=== PATIENT | male | born 1985 | race African-American/Black ===

== ENCOUNTER 2018-11-13 11:32 | Inpatient (IN) | payer BC, MEDICAID ==
--- NOTE | 2018-11-13 12:44 | ER Document Report ---
ED Medical Screen (RME) - General Chief Complaint: Leg Swelling Stated Complaint: LEG SWELLING/PAIN Time Seen by Provider: 11/13/18 12:36 Mode of Arrival: Wheelchair Information source: Patient Notes: This is a 32-year-old man with a history of hypertension, morbid obesity, venous stasis who presents to the emergency room with increased warmth, drainage, skin breakdown of the left lower extremity. Patient has a wound care doctor in [facility] and is scheduled to return back to [place] November 25. He is also scheduled for bariatric surgery in [facility]. He denies fever. He is allerg ic to sulfa. - Related Data Allergies/Adverse Reactions: Sulfa (Sulfonamide Antibiotics) Allergy (Verified 11/13/18 11:47) Past Medical History - Social History Frequency of alcohol use: None Drug Abuse: None - Past Medical History Cardiac Medical History: Reports: Hx Hypertension Renal/ Medical History: Denies: Hx Peritoneal Dialysis Musculoskeltal Medical History: Reports Hx Arthritis - RA Past Surgical History: Reports: Hx Tonsillectomy Physical Exam - Vital signs Vitals: Temp Pulse Resp BP Pulse Ox 97.8 F 110 H 19 154/113 H 97 11/13/18 12:09 11/13/18 12:09 11/13/18 12:09 11/13/18 12:09 11/13/18 12:09 Course - Vital Signs Vital signs: Temp Pulse Resp BP Pulse Ox 97.8 F 110 H 19 154/113 H 97 11/13/18 12:09 11/13/18 12:09 11/13/18 12:09 11/13/18 12:09 11/13/18 12:09 Doctor's Discharge - Discharge Referrals: LOCALMD,NO [Primary Care Provider] - Follow up as needed
[2018-11-13 14:32] LABS: ABSOLUTE EOSINOPHILS # (AUTO) 0.1 10^3/uL (0.0-0.6); ABSOLUTE LYMPHOCYTES (AUTO) 0.7 10^3/uL (0.5-4.7); ABSOLUTE MONOCYTES (AUTO) 0.6 10^3/uL (0.1-1.4); ABSOLUTE NEUT (AUTO) 10.6 10^3/uL (1.7-8.2); BASOPHILS % (AUTO) 0.2 % (0-2); EOSINOPHILS % (AUTO) 0.5 % (0-6); HEMATOCRIT 33.8 % (37.9-51.0); MEAN CORPUSCULAR HGB CONC 32.6 g/dL (32.0-36.0); MEAN CORPUSCULAR VOLUME 86 fl (80-97); MONOCYTES % (AUTO) 5.2 % (3-13); PLATELET COUNT 225 10^3/uL (150-450); RED BLOOD COUNT 3.93 10^6/uL (4.35-5.55); RED CELL DISTRIBUTION WIDTH 14.5 % (11.5-14.0); SEGMENTED NEUTROPHILS % (AUTO) 88.1 % (42-78); TOTAL CELLS COUNTED % (AUTO) 100 %; WHITE BLOOD COUNT 12.1 10^3/uL (4.0-10.5)
[2018-11-13] MEDS ORDERED: PIPERACILLIN/TAZOBACTAM 4.5 GM VIAL IV ONE (14:39)
[2018-11-13] MEDS ORDERED: VANCOMYCIN HCL INJ 1000 MG VIAL IV ONE (14:39)
[2018-11-13 14:51] LABS: ALANINE AMINOTRANSFERASE 23 U/L (21-72); ALBUMIN 3.9 g/dL (3.5-5.0); ALKALINE PHOSPHATASE 94 U/L (38-126); ANION GAP 8 (5-19); ASPARTATE AMINO TRANSFERASE 21 U/L (17-59); BILIRUBIN,DIRECT 0.3 mg/dL (0.0-0.4); BILIRUBIN,TOTAL 0.6 mg/dL (0.2-1.3); BLOOD UREA NITROGEN 8 mg/dL (7-20); CARBON DIOXIDE 30 mmol/L (22-30); CHLORIDE 102 mmol/L (98-107); GLUCOSE 102 mg/dL (75-110); POTASSIUM 3.9 mmol/L (3.6-5.0); SODIUM 139.6 mmol/L (137-145); TOTAL PROTEIN 8.3 g/dL (6.3-8.2)
--- NOTE | 2018-11-13 15:03 | ER Document Report ---
ED General - General Chief Complaint: Leg Swelling Stated Complaint: LEG SWELLING/PAIN Time Seen by Provider: 11/13/18 12:36 Mode of Arrival: Wheelchair - HPI Notes: 32-year-old male with a history of hypertension presents to the ED with complaints of left ankle swelling, erythema, pain with history of venous stasis with a BMI well over 90 and decubitus ulcers bilaterally which has become progressively worse today. Patient has been seen by wound clinic is having decubitus ulcers managed however patient is just visiting [place] and is a resident of [place]. Chills, denies fever. Reports pain is 9 out of 10, sharp and constant. Has not tried any [id number] medications. Patient did not take his blood pressure medications today due to coming right here for concerns of pain in his legs. Unable to bear full weight on bilateral legs, patient does ambulate with wheelchair. Denies any numbness and tingling in bilateral lower legs. Denies , chest pain,palpitations, shortness of breath, dyspnea, nausea, vomiting, diarrhea, abdominal pain, hematuria,blurred vision, double vision, loss of vision, speech changes, LH, dizziness, syncope, headaches, wheezing, ST, URI, neck pain, weakness, bowel or bladder dysfunction, saddle anesthesia, numbness or tingling in bilateral upper or lower extremities equally, muscle paralysis, weakness in bilateral upper or lower extremities equally. se. - Related Data Allergies/Adverse Reactions: Sulfa (Sulfonamide Antibiotics) Allergy (Verified 11/13/18 11:47) Past Medical History - General Information source: Patient - Social History Smoking Status: Never Smoker Frequency of alcohol use: None Drug Abuse: None Family History: Reviewed & Not Pertinent Patient has suicidal ideation: No Patient has homicidal ideation: No - Past Medical History Cardiac Medical History: Reports: Hx Hypertension Renal/ Medical History: Denies: Hx Peritoneal Dialysis Musculoskeletal Medical History: Reports Hx Arthritis - RA Past Surgical History: Reports: Hx Tonsillectomy Review of Systems - Review of Systems Constitutional: No symptoms reported EENT: No symptoms reported Cardiovascular: No symptoms reported Respiratory: No symptoms reported Gastrointestinal: No symptoms reported Genitourinary: No symptoms reported Male Genitourinary: No symptoms reported Musculoskeletal: See HPI Skin: See HPI Hematologic/Lymphatic: No symptoms reported Neurological/Psychological: No symptoms reported Physical Exam - Vital signs Vitals: Temp Pulse Resp BP Pulse Ox 97.8 F 110 H 19 154/113 H 97 11/13/18 12:09 11/13/18 12:09 11/13/18 12:09 11/13/18 12:09 11/13/18 12:09 - Notes Notes: PHYSICAL EXAMINATION: GENERAL: Well-appearing, well-nourished and in no acute distress. HEAD: Atraumatic, normocephalic. EYES: Pupils equal round and reactive to light, extraocular movements intact, sclera anicteric, conjunctiva are normal. ENT: Nares patent, oropharynx clear without exudates. Moist mucous membranes. NECK: Normal range of motion, supple without lymphadenopathy LUNGS: Breath sounds clear to auscultation bilaterally and equal. No wheezes rales or rhonchi. HEART: Regular rate and rhythm without murmurs ABDOMEN: Soft, nontender, nondistended abdomen. No guarding, no rebound. No masses appreciated. Musculoskeletal: Normal range of motion, no pitting or edema. No cyanosis. NEUROLOGICAL: Cranial nerves grossly intact. Normal speech, normal gait. Normal sensory, motor exams PSYCH: Normal mood, normal affect. SKIN: Warm, Dry, normal turgor, no rashes or lesions noted. Decubitus ulcer bilateral medial aspect of ankle approximately 4 cm x 3 cm. Noted erythema, induration and swelling to left ankle with noting phlebitis. Distal pulses +2 in bilateral lower extremities, noted swelling to right ankle without erythema induration. Negative Homans sign, full motor and sensory function to bilateral lower extremities, strength 5 out of 5 bilateral lower extremities bilaterally equally Course - Re-evaluation Re-evalutation: 11/13/18 17:35 32-year-old male afebrile slightly hypertensive but did not take his blood pressure meds today presents to the ED ER for complaints of left ankle erythema induration swelling with decubitus ulcers bilaterally with pain 10 out of 10 unable to bear full weight and chills. CBC shows a leukocytosis of 12.8 with slight shift, ultrasound right left lower extremity negative for DVT but is not completely sensitive due to body habitus forward-viewing veins. Right ankle negative for acute fracture dislocation or osteomyelitis, no gas noted. CMP negative for hepatic renal dysfunction. Lactic is still pending. Patient started on IV empiric antibiotics as well as IV fluids, patient given 1 mg of Dilaudid for IV pain control, patient states he had a great pain relief with this. Consulted with hospitalist Dr. Duvall, hospitalist, consulted and agreed to admit patient for IV antibiotics for further management of decubitus left ankle cellulitis with slight leukocytosis, will taken patient to medical service and telemetry. All questions and concerns answered by this provider patient. Patient agrees with plan of care reviewed plan of care. - Vital Signs Vital signs: Temp Pulse Resp BP Pulse Ox 97.8 F 110 H 23 H 154/113 H 100 11/13/18 12:09 11/13/18 12:09 11/13/18 15:00 11/13/18 12:09 11/13/18 15:00 - Laboratory Result Diagrams: 11/13/18 14:20 11/13/18 14:20 Laboratory results interpreted by me: 11/13/18 11/13/18 14:20 14:20 WBC 12.1 H RBC 3.93 L Hgb 11.0 L Hct 33.8 L RDW 14.5 H Seg Neutrophils % 88.1 H Lymphocytes % 6.0 L Absolute Neutrophils 10.6 H Total Protein 8.3 H Discharge - Discharge Clinical Impression: Cellulitis, Cellulitis of left ankle Decubitus ulcer, ankle Qualifiers: Pressure injury stage: unstageable Laterality: left Qualified Code(s): L89.520 - Pressure ulcer of left ankle, unstageable Condition: Stable Disposition: ADMITTED INPATIENT Admitting Provider: Hospitalist Unit Admitted: Telemetry - Dr. Jonel Bronson
--- NOTE | 2018-11-13 15:04 | RADIOLOGY REPORT (SQ) ---
EXAM DESCRIPTION: ANKLE LEFT COMPLETE COMPLETED DATE/TIME: 11/13/2018 2:55 pm REASON FOR STUDY: left ankle swelling/redness COMPARISON: None. NUMBER OF VIEWS: Three views. TECHNIQUE: AP, lateral, and oblique radiographic images acquired of the left ankle. LIMITATIONS: None. FINDINGS: MINERALIZATION: Normal. BONES: No acute fracture or dislocation. No worrisome bone lesions. JOINTS: No effusions. SOFT TISSUES: Diffuse soft tissue swelling about the medial left ankle with a bandaged wound superior to the ankle. OTHER: No other significant finding. IMPRESSION: No fracture or dislocation of the left ankle. Diffuse soft tissue swelling about the med ial left ankle with a bandaged wound superior to the ankle. TECHNICAL DOCUMENTATION: JOB ID: [id number] [employer]- All Rights Reserved Reading location - IP/workstation name: [email or web address]
[2018-11-13] MEDS ORDERED: HYDROMORPHONE HCL INJ/PF 2 MG/ML AMPULE IV ONE (16:11)
[2018-11-13] MEDS ORDERED: ONDANSETRON HCL INJ/PF 4 MG/2 ML SDV IV PRN (16:48)
[2018-11-13] MEDS ORDERED: HYDRALAZINE HCL INJ/PF 20 MG/1 ML SDV IV PRN (16:57)
--- NOTE | 2018-11-13 17:10 | PDOC H&P ---
History of Present Illness Admission Date/PCP: 11/13/18 16:44 Patient complains of: Bilateral lower leg swelling and left ankle pain History of Present Illness: OLGA BAINS is a 32 year old male with history of morbid obesity BMI more than 90 and hypertension, chronic venous stasis of the lower extremities chronic ulcers of the lower extremities above the ankles came to the emergency room with complaints of bilateral lower leg swelling and especially swelling around the left ankle associated with increased redness around the left ankle and pain. He is also given the history of fever and chills since yesterday. Is also given the history of cough with thick yellowish greenish sputum for the last 3-4 days. denies any headaches, nausea vomiting. Denies any falls and trips. Denies any recent history of trauma. Patient said he is scheduled to go for bariatric surgery at end of this month. The workup was done and he supposed to see the professor of biology next week for final clearance. Past Medical History Cardiac Medical History: Reports: Hypertension Musculoskeltal Medical History: Reports: Arthritis - RA Past Surgical History Past Surgical History: Reports: Tonsillectomy Social History Smoking Status: Never Smoker Frequency of Alcohol Use: Rare Hx Recreational Drug Use: No Hx Prescription Drug Abuse: No - Advance Directive Resuscitation Status: Full Code Family History Parental Family History Reviewed: Yes - Family history of hypertension and heart disease. Children Family History Reviewed: Yes Sibling(s) Family History Reviewed.: Yes Medication/Allergy Allergies/Adverse Reactions: Sulfa (Sulfonamide Antibiotics) Allergy (Verified 11/13/18 11:47) Review of Systems Constitutional: PRESENT: chills, fever(s) Eyes: ABSENT: visual disturbances Nose, Mouth, and Throat: ABSENT: headache(s), sore throat Cardiovascular: PRESENT: edema. ABSENT: chest pain, dyspnea on exertion, palpitations Respiratory: PRESENT: cough, sputum, other - thick yellowish green sputum.. ABSENT: dyspnea, hemoptysis Gastrointestinal: PRESENT: other - Morbidly obese abdomen with normal bowel soun ds. Soft and nontender on palpation. Musculoskeletal: PRESENT: other - Complains of swelling over the ankles associated with redness and increased tenderness of the ulcers of the lower extremities. Neurological: ABSENT: abnormal gait, abnormal speech, confusion, dizziness, focal weakness, syncope Psychiatric: ABSENT: anxiety, depression, homidical ideation, suicidal ideation Physical Exam Vital Signs: Temp Pulse Resp BP Pulse Ox 97.8 F 110 H 23 H 154/113 H 100 11/13/18 12:09 11/13/18 12:09 11/13/18 15:00 11/13/18 12:09 11/13/18 15:00 Intake & Output 11/12/18 11/13/18 11/14/18 06:59 06:59 06:59 Weight 314.793 kg General appearance: PRESENT: no acute distress Head exam: PRESENT: atraumatic Eye exam: PRESENT: PERRLA Mouth exam: PRESENT: moist Neck exam: ABSENT: carotid bruit, JVD, lymphadenopathy, thyromegaly Respiratory exam: PRESENT: clear to auscultation vesna. ABSENT: rales, rhonchi, wheezes Cardiovascular exam: PRESENT: RRR, tachycardia. ABSENT: diastolic murmur, rubs, systolic murmur Pulses: PRESENT: normal dorsalis pedis pul GI/Abdominal exam: PRESENT: normal bowel sounds, soft. ABSENT: distended, guarding, mass, organolmegaly, rebound, tenderness Extremities exam: PRESENT: joint swelling, pedal edema, +2 edema, other - Venous stasis with ulceration both of both ankles increasing foul-smelling drainage from the both ankles. The left ankle the area was surrounded by erythematous skin. Neurological exam: PRESENT: alert, awake, oriented to person, oriented to place, oriented to time, oriented to situation, CN II-XII grossly intact. ABSENT: motor sensory deficit Psychiatric exam: PRESENT: appropriate affect, normal mood. ABSENT: homicidal ideation, suicidal ideation Skin exam: PRESENT: erythema, warm, other - ulcers above both ankles and foul smelling drainage. Results Laboratory Results: 11/13/18 14:20 11/13/18 14:20 11/13/18 11/13/18 14:20 14:20 WBC 12.1 H RBC 3.93 L Hgb 11.0 L Hct 33.8 L MCV 86 MCH 28.0 MCHC 32.6 RDW 14.5 H Plt Count 225 Seg Neutrophils % 88.1 H Lymphocytes % 6.0 L Monocytes % 5.2 Eosinophils % 0.5 Basophils % 0.2 Absolute Neutrophils 10.6 H Absolute Lymphocytes 0.7 Absolute Monocytes 0.6 Absolute Eosinophils 0.1 Absolute Basophils 0.0 Sodium 139.6 Potassium 3.9 Chloride 102 Carbon Dioxide 30 Anion Gap 8 BUN 8 Creatinine 0.58 Est GFR ( Amer) > 60 Est GFR (Non-Af Amer) > 60 Glucose 102 Calcium 9.0 Total Bilirubin 0.6 AST 21 ALT 23 Alkaline Phosphatase 94 Total Protein 8.3 H Albumin 3.9 Impressions: Ankle X-Ray 11/13/18 14:47 IMPRESSION: No fracture or dislocation of the left ankle. Diffuse soft tissue swelling about the medial left ankle with a bandaged wound superior to the ankle. Assessment & Plan - Diagnosis (1) Cellulitis Is this a current diagnosis for this admission?: Yes Plan: 11/13/2018 patient has cellulitis around the left ankle. X-rays are negative for osteomyelitis. Ultrasound does not show any DVTs. Plan is to put him in telemetry blood cultures wound cultures urine culture and sputum cultures were requested. Sputum culture because patient is complaining of coughing up yellowish green sputum. He was started on Zosyn and vancomycin. We are going to adjust the doses as per the pharmacy recommendations. Repeat lactic acid is going to be requested. Initial lactic acid is still pending. (2) Decubitus ulcer, ankle Qualifiers: Pressure injury stage: unstageable Laterality: left Qualified Code(s): L89.520 - Pressure ulcer of left ankle, unstageable Is this a current diagnosis for this admission?: Yes Plan: 11/13/2018 patient has chronic venous stasis with ulceration about the both ankles. Foul-smelling drainage from the both ankles. Wound cultures were requested. Started on Zosyn and vancomycin. Surgical consult was requested. Dietary consult was requested for wound healing. (3) HTN (hypertension) Is this a current diagnosis for this admission?: Yes Plan: 11/13/2018 patient blood pressure on admission is 154/113 with heart rate of 110. P do not have any home medications available I started him on lisinopril 20 p.o. twice daily and hydrochlorothiazide 25 mg p.o. daily. Hydralazine IV 10 mg every 4 as needed were requested for systolic blood pressure of more than 150 and diastolic blood pressure more than 100. Salt diet was advised diet exercise weight loss recommended. (4) Morbid obesity Is this a current diagnosis for this admission?: Yes Plan: 11/13/2018 patient BMI is more than 90. Diet exercise weight loss lifestyle modifications were discussed with the patient. Dietary consult was requested. Patient is going for bariatric surgery in [place] at the end of this month. - Time Time Spent: 50 to 70 Minutes Critical Time spent with patient: 15-24 minutes Medications reviewed and adjusted accordingly: Yes Anticipated discharge: Home
--- NOTE | 2018-11-13 17:22 | RADIOLOGY REPORT (SQ) ---
EXAM DESCRIPTION: VENOUS UNILATERAL LOWER COMPLETED DATE/TIME: 11/13/2018 5:10 pm REASON FOR STUDY: rt leg swelling/redness/warmth to touch COMPARISON: None. TECHNIQUE: Dynamic and static longoria scale and color images acquired of the right leg venous system. S elected spectral images acquired with additional compression and augmentation maneuvers. The contrala teral common femoral vein and saphenofemoral junction were also imaged. Images stored on PACS. LIMITATIONS: Extremely morbid body habitus. Patient refused further exam after partial visualizatio n of the leg vasculature. FINDINGS: COMMON FEMORAL: Normal phasicity, compression and augmentation. No visualized echogenic ma terial on longoria scale. No defects on color images. FEMORAL: The mid to distal vessel is inadequately visualized due to habitus. Proximal vessel: Monique l compression and augmentation. No visualized echogenic material on longoria scale. No defects on color i mages. POPLITEAL: Normal compression, augmentation. No visualized echogenic material on longoria scale. No defec ts on color images. CALF VESSELS: Not evaluated due to patient refusal. GSV and SSV: Normal compression, augmentation. No visualized echogenic material on longoria scale. No def ects on color images. ANY DEEP VENOUS INSUFFICIENCY: Not evaluated. ANY EVIDENCE OF POPLITEAL CYST: No. OTHER: No other significant finding. CONTRALATERAL COMMON FEMORAL VEIN AND SAPHENOFEMORAL JUNCTION: Not evaluated due to patient refusal. IMPRESSION: Limited and incomplete examination due to patient habitus and refusal of further examina tion. Within this limitation, no evidence of deep venous thrombosis in the left common femoral vein, proximal left superficial femoral vein, popliteal vein, or saphenous veins. The mid to distal super ficial femoral vein and calf veins are not evaluated. TECHNICAL DOCUMENTATION: JOB ID: [id number] [employer]- All Rights Reserved Reading location - IP/workstation name: [email or web address]
[2018-11-13] MEDS ORDERED: PIPERACILLIN/TAZOBACTAM 3.375 GM VIAL IV SCH (18:00)
[2018-11-13] MEDS: FUROSEMIDE 20 MG TABLET PO SCH (18:29)
[2018-11-13] MEDS: DOCUSATE SODIUM 100 MG CAPSULE PO SCH (18:31)
[2018-11-13] MEDS: ENOXAPARIN SODIUM INJ 40 MG/0.4 ML DISP.SYRIN SUBCUT SCH (20:39)
[2018-11-13] MEDS: HYDROCHLOROTHIAZIDE 25 MG TABLET PO SCH (20:39)
[2018-11-13] MEDS: LISINOPRIL 10 MG TABLET PO SCH ×2 (21:29→21:31)
[2018-11-13] MEDS: FAMOTIDINE 20 MG TABLET PO SCH (21:30)
[2018-11-13] MEDS: ZOLPIDEM TARTRATE 5 MG TABLET PO SCH (21:30)
[2018-11-13] MEDS: VANCOMYCIN HCL 2,000 MG in DEXTROSE 5%-WATER 500 ML IV SCH (21:30)
--- NOTE | 2018-11-13 22:24 | PDOC CONSULTATION ---
Consultation Consult Date: 11/13/18 Consult reason:: bilateral lower leg venostasis ulcers History of Present Illness Admission Date/PCP: 11/13/18 16:44 History of Present Illness: OLGA BAINS is a 32 year old male, affected by super-super obesity (BMI 91) admitted for bilateral lower leg ulcers with cellulitis. He is undergng evaluation for possible bariatric surgery net week on Saturday; in the meantime he has been admitted at this institution for treatment of his venostasis ulcers with cellulitis. Past Medical History Cardiac Medical History: Reports: Hypertension Musculoskeltal Medical History: Reports: Arthritis - RA Past Surgical History Past Surgical History: Reports: Tonsillectomy Social History Smoking Status: Never Smoker Frequency of Alcohol Use: Rare Hx Recreational Drug Use: No Drugs: None Hx Prescription Drug Abuse: No - Advance Directive Resuscitation Status: Full Code Family History Family History: Reviewed & Not Pertinent Parental Family History Reviewed: No Children Family History Reviewed: No Sibling(s) Family History Reviewed.: No Medication/Allergy Home Medications: Ergocalciferol (Vitamin D2) [Vitamin D2] 2,000 unit PO DAILY 11/13/18 Folic Acid [Folvite 1 mg Tablet] 1 mg PO DAILY 11/13/18 Lisinopril [Prinivil] 20 mg PO DAILY 11/13/18 Allergies/Adverse Reactions: Sulfa (Sulfonamide Antibiotics) Allergy (Verified 11/13/18 11:47) Physical Exam Vital Signs: Temp Pulse Resp BP Pulse Ox 97.8 F 110 H 19 138/89 H 100 11/13/18 12:09 11/13/18 12:09 11/13/18 19:01 11/13/18 19:01 11/13/18 19:01 Intake & Output 11/12/18 11/13/18 11/14/18 06:59 06:59 06:59 Weight 314.793 kg General appearance: PRESENT: no acute distress, morbidly obese Extremities exam: PRESENT: full ROM, +2 edema, other - bilateral lower leg cellultis with open venosasis ulcers Results Laboratory Results: 11/13/18 14:20 11/13/18 14:20 11/13/18 11/13/18 11/13/18 14:20 14:20 20:50 WBC 12.1 H RBC 3.93 L Hgb 11.0 L Hct 33.8 L MCV 86 MCH 28.0 MCHC 32.6 RDW 14.5 H Plt Count 225 Seg Neutrophils % 88.1 H Lymphocytes % 6.0 L Monocytes % 5.2 Eosinophils % 0.5 Basophils % 0.2 Absolute Neutrophils 10.6 H Absolute Lymphocytes 0.7 Absolute Monocytes 0.6 Absolute Eosinophils 0.1 Absolute Basophils 0.0 Sodium 139.6 Potassium 3.9 Chloride 102 Carbon Dioxide 30 Anion Gap 8 BUN 8 Creatinine 0.58 Est GFR ( Amer) > 60 Est GFR (Non-Af Amer) > 60 Glucose 102 Lactic Acid 1.6 Calcium 9.0 Total Bilirubin 0.6 AST 21 ALT 23 Alkaline Phosphatase 94 Total Protein 8.3 H Albumin 3.9 Impressions: Venous Doppler Study 11/13/18 14:37 IMPRESSION: Limited and incomplete examination due to patient habitus and refusal of further examination. Within this limitation, no evidence of deep venous thrombosis in the left common femoral vein, proximal left superficial femoral vein, popliteal vein, or saphenous veins. The mid to distal superficial femoral vein and calf veins are not evaluated. Ankle X-Ray 11/13/18 14:47 IMPRESSION: No fracture or dislocation of the left ankle. Diffuse soft tissue swelling about the medial left ankle with a bandaged wound superior to the ank le. Assessment & Plan - Diagnosis (1) venostasis ulcers Is this a current diagnosis for this admission?: Yes - Plan Summary Plan Summary: A/ Super-super obese patient (BMI 91) with bilateral lower leg venostasis ulcerations P/ Placement of Unna boot to each lower extremity Routine replacement of the Unna boot by wound care clinic or nurses once a week Replace Unna Boot on both legs on Saturday next week before discharge. No other recommendations given for this patient.
[2018-11-14] MEDS: PIPERACILLIN SODIUM/TAZOBACTAM 3.375 GM in NORMAL SALINE 100 ML IV SCH ×4 (01:37→15:08)
[2018-11-14] MEDS: VANCOMYCIN HCL 2,000 MG in DEXTROSE 5%-WATER 500 ML IV SCH (02:32)
[2018-11-14 06:46] LABS: ABSOLUTE BASOPHILS # (AUTO) 0.1 10^3/uL (0.0-0.2); ABSOLUTE LYMPHOCYTES (AUTO) 0.9 10^3/uL (0.5-4.7); ABSOLUTE MONOCYTES (AUTO) 0.7 10^3/uL (0.1-1.4); ABSOLUTE NEUT (AUTO) 9.7 10^3/uL (1.7-8.2); BASOPHILS % (AUTO) 0.9 % (0-2); EOSINOPHILS % (AUTO) 0.3 % (0-6); HEMATOCRIT 32.8 % (37.9-51.0); HEMOGLOBIN 10.7 g/dL (13.5-17.0); LYMPHOCYTES % (AUTO) 8.2 % (13-45); MEAN CORPUSCULAR HEMOGLOBIN 28.1 pg (27.0-33.4); MEAN CORPUSCULAR HGB CONC 32.5 g/dL (32.0-36.0); MEAN CORPUSCULAR VOLUME 86 fl (80-97); MONOCYTES % (AUTO) 6.3 % (3-13); PLATELET COUNT 220 10^3/uL (150-450); RED CELL DISTRIBUTION WIDTH 14.6 % (11.5-14.0); SEGMENTED NEUTROPHILS % (AUTO) 84.3 % (42-78); TOTAL CELLS COUNTED % (AUTO) 100 %; WHITE BLOOD COUNT 11.6 10^3/uL (4.0-10.5)
[2018-11-14 07:03] LABS: BLOOD UREA NITROGEN 10 mg/dL (7-20); CALCIUM 9.2 mg/dL (8.4-10.2); CARBON DIOXIDE 29 mmol/L (22-30); CHLORIDE 102 mmol/L (98-107); GLUCOSE 127 mg/dL (75-110); POTASSIUM 3.9 mmol/L (3.6-5.0); SODIUM 139.6 mmol/L (137-145)
[2018-11-14 07:04] LABS: ALANINE AMINOTRANSFERASE 17 U/L (21-72); ALBUMIN 3.8 g/dL (3.5-5.0); ALKALINE PHOSPHATASE 85 U/L (38-126); ANION GAP 9 (5-19); ASPARTATE AMINO TRANSFERASE 19 U/L (17-59); BILIRUBIN,DIRECT 0.2 mg/dL (0.0-0.4); BILIRUBIN,TOTAL 0.7 mg/dL (0.2-1.3); CHOLESTEROL 161.76 mg/dL (0-200); TOTAL PROTEIN 8.1 g/dL (6.3-8.2); TRIGLYCERIDES 42 mg/dL (<150)
[2018-11-14 07:14] LABS: DIRECT LDL 91 mg/dL (<100)
[2018-11-14] MEDS ORDERED: VANCOMYCIN HCL INJ 1000 MG VIAL IV SCH (10:00)
[2018-11-14] MEDS: FAMOTIDINE 20 MG TABLET PO SCH ×2 (10:09→21:48)
[2018-11-14] MEDS: HYDROCHLOROTHIAZIDE 25 MG TABLET PO SCH (10:09)
[2018-11-14] MEDS: LISINOPRIL 10 MG TABLET PO SCH ×2 (10:09→21:48)
[2018-11-14] MEDS: ENOXAPARIN SODIUM INJ 40 MG/0.4 ML DISP.SYRIN SUBCUT SCH (10:10)
[2018-11-14] MEDS: FUROSEMIDE 20 MG TABLET PO SCH ×2 (10:10→17:44)
[2018-11-14] MEDS: DOCUSATE SODIUM 100 MG CAPSULE PO SCH ×2 (10:11→17:44)
[2018-11-14] MEDS: LINEZOLID 600 MG/300 ML RTUPB IV SCH (10:12)
--- NOTE | 2018-11-14 12:28 | PDOC PROGRESS REPORT ---
Subjective Progress Note for:: 11/14/18 Subjective:: 11/14/2018-no acute events in the last 24 hours. Patient is afebrile. Temperature is 97.7. Complaining of lower back pain requesting K pad. He is also requesting to be back on CPAP. He uses CPAP at night. Surgical consult was done yesterday. Input is appreciated. Reason For Visit: CELLULITIS Physical Exam Vital Signs: Temp Pulse Resp BP Pulse Ox 97.7 F 110 H 20 142/84 H 98 11/14/18 08:00 11/14/18 08:00 11/14/18 08:00 11/14/18 08:00 11/14/18 08:00 Intake & Output 11/13/18 11/14/18 11/15/18 06:59 06:59 06:59 Intake Total 2001 100 Output Total 1600 Balance 402 100 Weight 302.5 kg General appearance: PRESENT: morbidly obese Head exam: PRESENT: atraumatic Eye exam: PRESENT: PERRLA Mouth exam: PRESENT: moist, tongue midline Neck exam: ABSENT: carotid bruit, JVD, lymphadenopathy, thyromegaly Respiratory exam: PRESENT: clear to auscultation vesna. ABSENT: rales, rhonchi, wheezes Cardiovascular exam: PRESENT: RRR. ABSENT: diastolic murmur, rubs, systolic murmur GI/Abdominal exam: PRESENT: normal bowel sounds, soft. ABSENT: distended, guarding, mass, organolmegaly, rebound, tenderness Extremities exam: PRESENT: other - Ulcers over the both ankles. Foul-smelling drainage from the ankles. Redness and erythema around the left ankle. Neurological exam: PRESENT: alert, awake, oriented to person, oriented to place, oriented to time, oriented to situation, CN II-XII grossly intact. ABSENT: motor sensory deficit Psychiatric exam: PRESENT: appropriate affect, normal mood. ABSENT: homicidal ideation, suicidal ideation Results Laboratory Results: 11/14/18 06:25 11/14/18 06:25 11/13/18 11/13/18 11/13/18 14:20 14:20 20:50 WBC 12.1 H RBC 3.93 L Hgb 11.0 L Hct 33.8 L MCV 86 MCH 28.0 MCHC 32.6 RDW 14.5 H Plt Count 225 Seg Neutrophils % 88.1 H Lymphocytes % 6.0 L Monocytes % 5.2 Eosinophils % 0.5 Basophils % 0.2 Absolute Neutrophils 10.6 H Absolute Lymphocytes 0.7 Absolute Monocytes 0.6 Absolute Eosinophils 0.1 Absolute Basophils 0.0 Sodium 139.6 Potassium 3.9 Chloride 102 Carbon Dioxide 30 Anion Gap 8 BUN 8 Creatinine 0.58 Est GFR ( Amer) > 60 Est GFR (Non-Af Amer) > 60 Glucose 102 Lactic Acid 1.6 Calcium 9.0 Magnesium Total Bilirubin 0.6 AST 21 ALT 23 Alkaline Phosphatase 94 Total Protein 8.3 H Albumin 3.9 Triglycerides Cholesterol LDL Cholesterol Direct VLDL Cholesterol HDL Cholesterol TSH 11/14/18 11/14/18 11/14/18 04:24 04:24 06:25 WBC Cancelled RBC Cancelled Hgb Cancelled Hct Cancelled MCV Cancelled MCH Cancelled MCHC Cancelled RDW Cancelled Plt Count Cancelled Seg Neutrophils % Cancelled Lymphocytes % Cancelled Monocytes % Cancelled Eosinophils % Cancelled Basophils % Cancelled Absolute Neutrophils Cancelled Absolute Lymphocytes Cancelled Absolute Monocytes Cancelled Absolute Eosinophils Cancelled Absolute Basophils Cancelled Sodium 139.6 Potassium 3.9 Chloride 102 Carbon Dioxide 29 Anion Gap 9 BUN 10 Creatinine 0.75 Est GFR ( Amer) > 60 Est GFR (Non-Af Amer) > 60 Glucose 127 H Lactic Acid Calcium 9.2 Magnesium 1.9 Total Bilirubin 0.7 AST 19 ALT 17 L Alkaline Phosphatase 85 Total Protein 8.1 Albumin 3.8 Triglycerides 42 Cholesterol 161.76 LDL Cholesterol Direct 91 VLDL Cholesterol 8.0 L HDL Cholesterol 44 TSH 1.91 11/14/18 06:25 WBC 11.6 H RBC 3.80 L Hgb 10.7 L Hct 32.8 L MCV 86 MCH 28.1 MCHC 32.5 RDW 14.6 H Plt Count 220 Seg Neutrophils % 84.3 H Lymphocytes % 8.2 L Monocytes % 6.3 Eosinophils % 0.3 Basophils % 0.9 Absolute Neutrophils 9.7 H Absolute Lymphocytes 0.9 Absolute Monocytes 0.7 Absolute Eosinophils 0.0 Absolute Basophils 0.1 Sodium Potassium Chloride Carbon Dioxide Anion Gap BUN Creatinine Est GFR ( Amer) Est GFR (Non-Af Amer) Glucose Lactic Acid Calcium Magnesium Total Bilirubin AST ALT Alkaline Phosphatase Total Protein Albumin Triglycerides Cholesterol LDL Cholesterol Direct VLDL Cholesterol HDL Cholesterol TSH 11/14/18 04:24 NT-Pro-B Natriuret Pep 138 H Impressions: Venous Doppler Study 11/13/18 14:37 IMPRESSION: Limited and incomplete examination due to patient habitus and refusal of further examination. Within this limitation, no evidence of deep venous thrombosis in the left common femoral vein, proximal left superficial femoral vein, popliteal vein, or saphenous veins. The mid to distal superficial femoral vein and calf veins are not evaluated. Ankle X-Ray 11/13/18 14:47 IMPRESSION: No fracture or dislocation of the left ankle. Diffuse soft tissue swelling about the medial left ankle with a bandaged wound superior to the ankle. Assessment & Plan - Diagnosis (1) Cellulitis Is this a current diagnosis for this admission?: Yes Plan: 11/13/2018 patient has cellulitis around the left ankle. X-rays are negative for osteomyelitis. Ultrasound does not show any DVTs. Plan is to put him in telemetry blood cultures wound cultures urine culture and sputum cultures were requested. Sputum culture because patient is complaining of coughing up yellowish green sputum. He was started on Zosyn and vancomycin. We are going to adjust the doses as per the pharmacy recommendations. Repeat lactic acid is going to be requested. Initial lactic acid is still pending. 11/14/2018-patient came in with a cellulitis of the left lower leg and chronic ulcerations of the both lower legs he was started on Zosyn and vancomycin as per the ID recommendations vancomycin was changed to Zyvox. Patient is afebrile. Blood cultures blood cultures are pending. Patient is also complaining of coughing up greenish sputum at the time of admission sputum culture was requested which is also pending. Surgical team recommended a Unna boot. (2) Decubitus ulcer, ankle Qualifiers: Pressure injury stage: unstageable Laterality: left Qualified Code(s): L89.520 - Pressure ulcer of left ankle, unstageable Is this a current diagnosis for this admission?: Yes Plan: 11/13/2018 patient has chronic venous stasis with ulceration about the both ankles. Foul-smelling drainage from the both ankles. Wound cultures were requested. Started on Zosyn and vancomycin. Surgical consult was requested. Dietary consult was requested for wound healing. 2018 patient has history of chronic venous stasis with ulceration Of the both ankles. Wound culture was done patient is presently on Zosyn and Zyvox. Dietary consult was requested for wound healing and surgical team recommended urine output. (3) HTN (hypertension) Is this a current diagnosis for this admission?: Yes Plan: 11/13/2018 patient blood pressure on admission is 154/113 with heart rate of 110. P do not have any home medications available I started him on lisinopril 20 p.o. twice daily and hydrochlorothiazide 25 mg p.o. daily. Hydralazine IV 10 mg every 4 as needed were requested for systolic blood pressure of more than 150 and diastolic blood pressure more than 100. Salt diet was advised diet exercise weight loss recommended. 11/14/2018 admission blood pressure is 154/113, today it is 142/84. Well controlled. Patient is on Lasix 20 mg p.o. twice daily, lisinopril 20 mg p.o. twice daily and hydrochlorothiazide 12.5 mg p.o. daily plan is to continue the present management. (4) Morbid obesity Is this a current diagnosis for this admission?: Yes Plan: 11/13/2018 patient BMI is more than 90. Diet exercise weight loss lifestyle modifications were discussed with the patient. Dietary consult was requested. Patient is going for bariatric surgery in [place] at the end of this month. 11/14/2018 patient BMI is more than 90. Again diet exercise weight loss lifestyle modifications are recommended. Dietary consult was also done. (5) Obstructive sleep apnea Is this a current diagnosis for this admission?: Yes Plan: 11/14/2018 patient has history of obstructive sleep apnea uses CPAP at night. Plan is to resume the CPAP during the hospital stay. - Time Time Spent with patient: 15-24 minutes Medications reviewed and adjusted accordingly: Yes Anticipated discharge: Home
[2018-11-14] MEDS: ZOLPIDEM TARTRATE 5 MG TABLET PO SCH (21:48)
[2018-11-14] MEDS ORDERED: LIDOCAINE 1% INJ-PF (10 MG/ML) 30 ML SDV ONE (23:58)
[2018-11-15] MEDS ORDERED: NORMAL SALINE INJ/PF 0.9% 10 ML SDV IV PRN (00:35)
--- NOTE | 2018-11-15 00:38 | Operative Report ---
Operative Report DATE OF SURGERY: 11/15/18 PREOPERATIVE DIAGNOSIS: Cellulitis of lower extremities POSTOPERATIVE DIAGNOSIS: Same; morbid obesity OPERATION: 1. Focused ultrasound of the right neck. 2. Ultrasound directed insertion of triple-lumen central venous access catheter. 3. Extreme difficulty modifier SURGEON: DELANEY VICENTE ANESTHESIA: Local TISSUE REMOVED OR ALTERED: None COMPLICATIONS: None ESTIMATED BLOOD LOSS: Scant INTRAOPERATIVE FINDINGS: See below PROCEDURE: Informed consent was obtained. The patient was placed in Trendelenburg the right neck and chest wall were exposed, and prepped and draped in a sterile fashion. Surgical plan and surgical timeout discussed. The right neck was anesthetized with 1% lidocaine without epinephrine. Using the variable frequency linear transducer, real time, a 18-gauge needle and wire were threaded into the right internal jugular vein. The tract was dilated up, the dilator removed, and the triple-lumen central venous access catheter was threaded into the right internal jugular vein uneventfully to the hub. There was excellent aspiration and flush of saline through all 3 lumens. The catheter was affixed to the skin with a Biopatch and 2-0 silk suture; sterile dressing applied. Extremely difficult modifier added to the procedure because of morbid obesity difficulty manipulating the patient difficulty accessing the patient, use of extra long needles for injection of local anesthesia; also the depth required to cannulate the vein and additional manipulation, and sweat and strain on the part of the surgeon as well as time required approximately 1 hour. The patient tolerated the procedure well. There were no complications. Portable upright chest x-ray pending at time of dictation.
[2018-11-15] MEDS: OXYCODONE-ACETAMINOPHEN 5-325 MG TABLET PO PRN (01:03)
[2018-11-15] MEDS: LINEZOLID 600 MG/300 ML RTUPB IV SCH ×3 (01:10→22:08)
--- NOTE | 2018-11-15 01:18 | RADIOLOGY REPORT (SQ) ---
XR CHEST 1 VIEW HISTORY: Central line placement COMPARISON: None. FINDINGS: There is a right IJ line with the tip near the cavoatrial junction. No discernible pneumothorax. The lungs are clear. No pleural effusion. No acute osseous findings. IMPRESSION: New right IJ line with tip near cavoatrial junction. No pneumothorax.
[2018-11-15] MEDS: PIPERACILLIN SODIUM/TAZOBACTAM 3.375 GM in NORMAL SALINE 100 ML IV SCH ×6 (02:34→20:15)
[2018-11-15 05:53] LABS: ABSOLUTE BASOPHILS # (AUTO) 0.1 10^3/uL (0.0-0.2); ABSOLUTE EOSINOPHILS # (AUTO) 0.1 10^3/uL (0.0-0.6); ABSOLUTE LYMPHOCYTES (AUTO) 1.2 10^3/uL (0.5-4.7); ABSOLUTE MONOCYTES (AUTO) 0.8 10^3/uL (0.1-1.4); ABSOLUTE NEUT (AUTO) 10.4 10^3/uL (1.7-8.2); BASOPHILS % (AUTO) 0.4 % (0-2); EOSINOPHILS % (AUTO) 0.7 % (0-6); HEMATOCRIT 32.2 % (37.9-51.0); HEMOGLOBIN 10.5 g/dL (13.5-17.0); LYMPHOCYTES % (AUTO) 9.5 % (13-45); MEAN CORPUSCULAR HEMOGLOBIN 28.4 pg (27.0-33.4); MEAN CORPUSCULAR HGB CONC 32.6 g/dL (32.0-36.0); MEAN CORPUSCULAR VOLUME 87 fl (80-97); MONOCYTES % (AUTO) 6.4 % (3-13); PLATELET COUNT 217 10^3/uL (150-450); RED CELL DISTRIBUTION WIDTH 14.6 % (11.5-14.0); TOTAL CELLS COUNTED % (AUTO) 100 %; WHITE BLOOD COUNT 12.6 10^3/uL (4.0-10.5)
[2018-11-15 05:55] LABS: ALANINE AMINOTRANSFERASE 29 U/L (21-72); ALBUMIN 3.7 g/dL (3.5-5.0); ALKALINE PHOSPHATASE 86 U/L (38-126); ANION GAP 8 (5-19); ASPARTATE AMINO TRANSFERASE 23 U/L (17-59); BILIRUBIN,DIRECT 0.2 mg/dL (0.0-0.4); BILIRUBIN,TOTAL 0.7 mg/dL (0.2-1.3); BLOOD UREA NITROGEN 12 mg/dL (7-20); CARBON DIOXIDE 30 mmol/L (22-30); CHLORIDE 102 mmol/L (98-107); GLUCOSE 148 mg/dL (75-110); POTASSIUM 3.5 mmol/L (3.6-5.0); TOTAL PROTEIN 7.9 g/dL (6.3-8.2)
[2018-11-15] MEDS: HYDROCHLOROTHIAZIDE 25 MG TABLET PO SCH (09:55)
[2018-11-15] MEDS: FOLIC ACID 1 MG TABLET PO SCH (09:56)
[2018-11-15] MEDS: LISINOPRIL 10 MG TABLET PO SCH ×2 (09:56→22:07)
[2018-11-15] MEDS: FAMOTIDINE 20 MG TABLET PO SCH ×2 (09:56→22:08)
[2018-11-15] MEDS: ENOXAPARIN SODIUM INJ 40 MG/0.4 ML DISP.SYRIN SUBCUT SCH (09:57)
[2018-11-15] MEDS: CHOLECALCIFEROL (D3) 1,000 UNIT TABLET PO SCH (09:57)
[2018-11-15] MEDS ORDERED: (PENDING PHARMACY ID) (Ergocalciferol (Vitamin D2) [Vitamin D2] 2,000 UNIT) PO SCH (10:00)
[2018-11-15] MEDS: DOCUSATE SODIUM 100 MG CAPSULE PO SCH ×2 (10:10→18:46)
[2018-11-15] MEDS: FUROSEMIDE 20 MG TABLET PO SCH ×2 (10:10→18:46)
[2018-11-15] MEDS: ACETAMINOPHEN 325 MG TABLET PO PRN (10:23)
[2018-11-15 14:13] LABS: ABSOLUTE EOSINOPHILS # (AUTO) 0.2 10^3/uL (0.0-0.6); ABSOLUTE LYMPHOCYTES (AUTO) 1.5 10^3/uL (0.5-4.7); ABSOLUTE MONOCYTES (AUTO) 0.9 10^3/uL (0.1-1.4); ABSOLUTE NEUT (AUTO) 8.8 10^3/uL (1.7-8.2); BASOPHILS % (AUTO) 0.3 % (0-2); EOSINOPHILS % (AUTO) 1.6 % (0-6); HEMATOCRIT 31.7 % (37.9-51.0); HEMOGLOBIN 10.3 g/dL (13.5-17.0); LYMPHOCYTES % (AUTO) 12.8 % (13-45); MEAN CORPUSCULAR HGB CONC 32.3 g/dL (32.0-36.0); MEAN CORPUSCULAR VOLUME 86 fl (80-97); MONOCYTES % (AUTO) 7.9 % (3-13); PLATELET COUNT 211 10^3/uL (150-450); RED BLOOD COUNT 3.67 10^6/uL (4.35-5.55); RED CELL DISTRIBUTION WIDTH 14.5 % (11.5-14.0); SEGMENTED NEUTROPHILS % (AUTO) 77.4 % (42-78); TOTAL CELLS COUNTED % (AUTO) 100 %; WHITE BLOOD COUNT 11.4 10^3/uL (4.0-10.5)
[2018-11-15] MEDS: NORMAL SALINE 1000 ML 1,000 ML IV PRN (16:10)
--- NOTE | 2018-11-15 18:37 | PROGRESS NOTE E ---
Progress Note NAME: OLGA BAINS : 1985 AGE: 32Y DATE: 11/15/2018 ROOM: 537 SUBJECTIVE: The patient is a pleasant 32-year-old -[place] male who is morbidly obese, admitted with bilateral cellulitis. Started on IV antibiotics. The patient is feeling better today. He also had obstructive sleep apnea and uses CPAP at night. OBJECTIVE: GENERAL: Patient lying in bed, comfortable, not in distress. VITAL SIGNS: Blood pressure 150/112, temperature 97.6, heart rate 91, respiratory rate 20, saturation 99% on room air. HEENT: Normocephalic/atraumatic. Pupils round, reactive to light and accommodation bilaterally. Mucous membranes intact. Ears: Tympanic membranes are intact. No discharge from the ears. No discharge from the nose. NECK: Supple. No JVD, no thyromegaly, no lymphadenopathy. CARDIOVASCULAR: Normal S1, S2. Regular rate and rhythm. No murmur, no gallop. RESPIRATORY: Lungs clear. ABDOMEN: Soft, nontender. EXTREMITIES: No edema. SKIN: No rash. LABORATORY: White blood cell count 12.6, hemoglobin 10.5. Sodium 140, potassium 3.5, creatinine 1.2. ASSESSMENT AND PLAN: 1. CELLULITIS. Continue Zosyn and vancomycin. 2. DECUBITUS ULCER ON ANKLE. 3. HYPERTENSION, CONTROLLED. 4. MORBID OBESITY. 5. OBSTRUCTIVE SLEEP APNEA. Continue CPAP. MEDICAL NECESSITY: IV antibiotics of vancomycin and Zosyn. DICTATING PHYSICIAN: PATRICK TINSLEY M.D. [id number] PHY#: [id number] ID: [id number] JOB#: [id number] ACCT: [id number] cc: >
[2018-11-15] MEDS: ZOLPIDEM TARTRATE 5 MG TABLET PO SCH (22:07)
[2018-11-16] MEDS: PIPERACILLIN SODIUM/TAZOBACTAM 3.375 GM in NORMAL SALINE 100 ML IV SCH ×4 (04:01→21:18)
[2018-11-16 05:44] LABS: ABSOLUTE BASOPHILS # (AUTO) 0.1 10^3/uL (0.0-0.2); ABSOLUTE EOSINOPHILS # (AUTO) 0.3 10^3/uL (0.0-0.6); ABSOLUTE MONOCYTES (AUTO) 0.7 10^3/uL (0.1-1.4); ABSOLUTE NEUT (AUTO) 11.2 10^3/uL (1.7-8.2); BASOPHILS % (AUTO) 0.6 % (0-2); EOSINOPHILS % (AUTO) 2.2 % (0-6); HEMATOCRIT 31.4 % (37.9-51.0); HEMOGLOBIN 10.1 g/dL (13.5-17.0); LYMPHOCYTES % (AUTO) 7.7 % (13-45); MEAN CORPUSCULAR HEMOGLOBIN 27.9 pg (27.0-33.4); MEAN CORPUSCULAR HGB CONC 32.1 g/dL (32.0-36.0); MEAN CORPUSCULAR VOLUME 87 fl (80-97); MONOCYTES % (AUTO) 5.2 % (3-13); PLATELET COUNT 216 10^3/uL (150-450); RED BLOOD COUNT 3.62 10^6/uL (4.35-5.55); RED CELL DISTRIBUTION WIDTH 14.7 % (11.5-14.0); SEGMENTED NEUTROPHILS % (AUTO) 84.3 % (42-78); TOTAL CELLS COUNTED % (AUTO) 100 %; WHITE BLOOD COUNT 13.3 10^3/uL (4.0-10.5)
[2018-11-16 06:06] LABS: ALBUMIN 3.5 g/dL (3.5-5.0); ANION GAP 10 (5-19); BLOOD UREA NITROGEN 16 mg/dL (7-20); CALCIUM 8.6 mg/dL (8.4-10.2); CARBON DIOXIDE 31 mmol/L (22-30); CHLORIDE 99 mmol/L (98-107); GLUCOSE 113 mg/dL (75-110); PHOSPHORUS 5.6 mg/dL (2.5-4.5); POTASSIUM 3.7 mmol/L (3.6-5.0); SODIUM 139.9 mmol/L (137-145)
[2018-11-16] MEDS: ACETAMINOPHEN 325 MG TABLET PO PRN (08:20)
[2018-11-16] MEDS: ENOXAPARIN SODIUM INJ 40 MG/0.4 ML DISP.SYRIN SUBCUT SCH (10:37)
[2018-11-16] MEDS: HYDROCHLOROTHIAZIDE 25 MG TABLET PO SCH (10:37)
[2018-11-16] MEDS: FOLIC ACID 1 MG TABLET PO SCH (10:37)
[2018-11-16] MEDS: LISINOPRIL 10 MG TABLET PO SCH ×2 (10:38→21:18)
[2018-11-16] MEDS: LINEZOLID 600 MG/300 ML RTUPB IV SCH ×2 (10:38→21:20)
[2018-11-16] MEDS: FAMOTIDINE 20 MG TABLET PO SCH ×2 (10:38→21:19)
[2018-11-16] MEDS: CHOLECALCIFEROL (D3) 1,000 UNIT TABLET PO SCH (10:38)
[2018-11-16] MEDS: DOCUSATE SODIUM 100 MG CAPSULE PO SCH ×2 (10:46→17:34)
[2018-11-16 12:26] LABS: ARTERIAL BLOOD BASE EXCESS 5.2 mmol/L; ARTERIAL BLOOD HCO3 31.2 mmol/L (20-24); ARTERIAL BLOOD O2 SATURATION 96.9 % (94-98); ARTERIAL BLOOD PH 7.39 (7.35-7.45); ARTERIAL BLOOD PO2 92.6 mmHg (80-100); ARTERIAL BLOOD TOTAL CO2 32.8 mmol/L (23-27)
[2018-11-16 12:28] LABS: ARTERIAL BLOOD FIO2 3L
[2018-11-16] MEDS: FUROSEMIDE 20 MG TABLET PO SCH (14:54)
[2018-11-16] MEDS: NORMAL SALINE 1000 ML 1,000 ML IV PRN (17:41)
[2018-11-16] MEDS: ZOLPIDEM TARTRATE 5 MG TABLET PO SCH (21:19)
[2018-11-17] MEDS: PIPERACILLIN SODIUM/TAZOBACTAM 3.375 GM in NORMAL SALINE 100 ML IV SCH ×4 (03:54→23:08)
[2018-11-17] MEDS: FUROSEMIDE 20 MG TABLET PO SCH ×3 (05:16→14:28)
[2018-11-17 05:40] LABS: ABSOLUTE EOSINOPHILS # (AUTO) 0.4 10^3/uL (0.0-0.6); ABSOLUTE LYMPHOCYTES (AUTO) 1.1 10^3/uL (0.5-4.7); ABSOLUTE MONOCYTES (AUTO) 0.6 10^3/uL (0.1-1.4); ABSOLUTE NEUT (AUTO) 8.3 10^3/uL (1.7-8.2); BASOPHILS % (AUTO) 0.1 % (0-2); EOSINOPHILS % (AUTO) 3.7 % (0-6); HEMATOCRIT 30.1 % (37.9-51.0); HEMOGLOBIN 9.9 g/dL (13.5-17.0); LYMPHOCYTES % (AUTO) 10.6 % (13-45); MEAN CORPUSCULAR HEMOGLOBIN 28.4 pg (27.0-33.4); MEAN CORPUSCULAR HGB CONC 32.8 g/dL (32.0-36.0); MEAN CORPUSCULAR VOLUME 87 fl (80-97); MONOCYTES % (AUTO) 6.2 % (3-13); PLATELET COUNT 211 10^3/uL (150-450); RED BLOOD COUNT 3.48 10^6/uL (4.35-5.55); RED CELL DISTRIBUTION WIDTH 14.2 % (11.5-14.0); SEGMENTED NEUTROPHILS % (AUTO) 79.4 % (42-78); TOTAL CELLS COUNTED % (AUTO) 100 %; WHITE BLOOD COUNT 10.4 10^3/uL (4.0-10.5)
[2018-11-17] MEDS: OXYCODONE-ACETAMINOPHEN 5-325 MG TABLET PO PRN (05:43)
--- NOTE | 2018-11-17 05:57 | PROGRESS NOTE E ---
Progress Note NAME: OLGA BAINS : 1985 AGE: 32Y DATE: 11/16/2018 ROOM: 537 SUBJECTIVE: The patient is a 32-year-old -[place] male who is morbidly obese, admitted with bilateral cellulitis, on IV antibiotics. He is on linezolid and Zosyn. He is feeling better today. He showered this morning. Right now, he is doing well. OBJECTIVE: GENERAL: The patient lying in bed comfortable, not in distress. VITAL SIGNS: Temperature 98, heart rate is 102, blood pressure 120/58, saturation 99% on 6 L. HEENT: Head: Normocephalic, atraumatic. Pupils round, reactive to light and accommodation bilaterally. Extraocular movements intact. Ears: Tympanic membranes intact bilaterally. No discharge from the ears. No discharge from the nose. NECK: Supple. No increased JVD. No thyromegaly. No lymphadenopathy. CARDIOVASCULAR: Normal S1, S2. Regular rate and rhythm. No murmur. No gallop. RESPIRATORY: Lungs clear. ABDOMEN: Obese. MUSCULOSKELETAL: Edema. LABORATORY DATA: White blood count 13, hemoglobin 10. Sodium 139, potassium 3.7, creatinine 1.3. ASSESSMENT AND PLAN: 1. BILATERAL CELLULITIS. Continue Zosyn and linezolid. 2. DECUBITUS ULCER OF THE ANKLE. 3. HYPERTENSION, CONTROLLED. 4. MORBID OBESITY. 5. OBSTRUCTIVE SLEEP APNEA WITH HYPOXEMIA. Continue CPAP. 6. ACUTE KIDNEY INJURY. MEDICAL NECESSITY: IV antibiotics. DISPOSITION: Probably home in 1 or 2 days. DICTATING PHYSICIAN: PATRICK TINSLEY M.D. [id number] LAQUITA#: [id number] ID: [id number] JOB#: [id number] ACCT: [id number] cc: >
[2018-11-17] MEDS: DOCUSATE SODIUM 100 MG CAPSULE PO SCH ×2 (09:56→17:43)
[2018-11-17] MEDS: CHOLECALCIFEROL (D3) 1,000 UNIT TABLET PO SCH (10:03)
[2018-11-17] MEDS: LISINOPRIL 10 MG TABLET PO SCH ×2 (10:03→23:09)
[2018-11-17] MEDS: FOLIC ACID 1 MG TABLET PO SCH (10:03)
[2018-11-17] MEDS: FAMOTIDINE 20 MG TABLET PO SCH ×2 (10:03→23:10)
[2018-11-17] MEDS: HYDROCHLOROTHIAZIDE 25 MG TABLET PO SCH (10:03)
[2018-11-17] MEDS: LINEZOLID 600 MG/300 ML RTUPB IV SCH ×2 (10:03→23:08)
[2018-11-17] MEDS: ENOXAPARIN SODIUM INJ 40 MG/0.4 ML DISP.SYRIN SUBCUT SCH (10:03)
--- NOTE | 2018-11-17 15:45 | PDOC PROGRESS REPORT ---
Subjective Progress Note for:: 11/17/18 Subjective:: 11/14/2018-no acute events in the last 24 hours. Patient is afebrile. Temperature is 97.7. Complaining of lower back pain requesting K pad. He is also requesting to be back on CPAP. He uses CPAP at night. Surgical consult was done yesterday. Input is appreciated. 2018 no acute events in the last 48 hours. Patient is afebrile. His vital signs today temperature 97.9. Pulse ox is 97% on 3 L. Reason For Visit: CELLULITIS Physical Exam Vital Signs: Temp Pulse Resp BP Pulse Ox 97.9 F 97 18 164/100 H 97 11/17/18 11:51 11/17/18 14:00 11/17/18 11:51 11/17/18 11:51 11/17/18 11:51 Intake & Output 11/16/18 11/17/18 11/18/18 06:59 06:59 06:59 Intake Total 2465 3880 1500 Output Total 4050 3975 Balance -1585 -95 1500 Weight 298.5 kg 300.1 kg General appearance: PRESENT: no acute distress, other - Morbidly obese male. Head exam: PRESENT: atraumatic Eye exam: PRESENT: PERRLA Mouth exam: PRESENT: dry mucosa Neck exam: ABSENT: carotid bruit, JVD, lymphadenopathy, thyromegaly Respiratory exam: PRESENT: decreased breath sounds Cardiovascular exam: PRESENT: tachycardia GI/Abdominal exam: PRESENT: normal bowel sounds, soft. ABSENT: distended, guarding, mass, organolmegaly, rebound, tenderness Extremities exam: PRESENT: other - Ulcers over the both ankles. Neurological exam: PRESENT: alert, awake, oriented to person, oriented to place, oriented to time, oriented to situation, CN II-XII grossly intact. ABSENT: motor sensory deficit Psychiatric exam: PRESENT: appropriate affect, normal mood. ABSENT: homicidal ideation, suicidal ideation Results Laboratory Results: 11/17/18 05:00 11/16/18 05:15 11/17/18 05:00 WBC 10.4 RBC 3.48 L Hgb 9.9 L Hct 30.1 L MCV 87 MCH 28.4 MCHC 32.8 RDW 14.2 H Plt Count 211 Seg Neutrophils % 79.4 H Lymphocytes % 10.6 L Monocytes % 6.2 Eosinophils % 3.7 Basophils % 0.1 Absolute Neutrophils 8.3 H Absolute Lymphocytes 1.1 Absolute Monocytes 0.6 Absolute Eosinophils 0.4 Absolute Basophils 0.0 11/14/18 06:10 Foot - Sore Gram Stain - Final 11/14/18 06:10 Foot - Sore Wound Culture - Final Enterobacter Cloacae Enterococcus Faecalis(Group D) Staphylococcus Aureus 11/13/18 06:40 Sputum Gram Stain - Final 11/13/18 06:40 Sputum Sputum Culture - Final NORMAL LUDWIN 11/14/18 13:00 Clean Catch Midstream Urine Culture - Final NO GROWTH 2 DAYS 11/14/18 04:24 NT-Pro-B Natriuret Pep 138 H Impressions: Venous Doppler Study 11/13/18 14:37 IMPRESSION: Limited and incomplete examination due to patient habitus and refusal of further examination. Within this limitation, no evidence of deep venous thrombosis in the left common femoral vein, proximal left superficial femoral vein, popliteal vein, or saphenous veins. The mid to distal superficial femoral vein and calf veins are not evaluated. Ankle X-Ray 11/13/18 14:47 IMPRESSION: No fracture or dislocation of the left ankle. Diffuse soft tissue swelling about the medial left ankle with a bandaged wound superior to the ankle. Chest X-Ray 11/15/18 00:24 IMPRESSION: New right IJ line with tip near cavoatrial junction. No pneumothorax. Assessment & Plan - Diagnosis (1) Cellulitis Is this a current diagnosis for this admission?: Yes Plan: 11/13/2018 patient has cellulitis around the left ankle. X-rays are negative for osteomyelitis. Ultrasound does not show any DVTs. Plan is to put him in telemetry blood cultures wound cultures urine culture and sputum cultures were requested. Sputum culture because patient is complaining of coughing up yello wish green sputum. He was started on Zosyn and vancomycin. We are going to adjust the doses as per the pharmacy recommendations. Repeat lactic acid is going to be requested. Initial lactic acid is still pending. 11/14/2018-patient came in with a cellulitis of the left lower leg and chronic ulcerations of the both lower legs he was started on Zosyn and vancomycin as per the ID recommendations vancomycin was changed to Zyvox. Patient is afebrile. Blood cultures blood cultures are pending. Patient is also complaining of coughing up greenish sputum at the time of admission sputum culture was requested which is also pending. Surgical team recommended a Unna boot. 11/17/2018 patient getting IV antibiotic therapy for left ankle cellulitis. Cultures are positive for enterococcus Enterobacter and Staphylococcus aureus. Waiting for the sensitivity report. Patient is presently on Zosyn and vancomycin. Surgical consult was requested the recommendation is a Unna boot. (2) Decubitus ulcer, ankle Qualifiers: Pressure injury stage: unstageable Laterality: left Qualified Code(s): L89.520 - Pressure ulcer of left ankle, unstageable Is this a current diagnosis for this admission?: Yes Plan: 11/13/2018 patient has chronic venous stasis with ulceration about the both ankles. Foul-smelling drainage from the both ankles. Wound cultures were requested. Started on Zosyn and vancomycin. Surgical consult was requested. Dietary consult was requested for wound healing. 2018 patient has history of chronic venous stasis with ulceration Of the both ankles. Wound culture was done patient is presently on Zosyn and Zyvox. Dietary consult was requested for wound healing and surgical team recommended urine output. 11/17/2018-patient has ulceration over the both ankles. When this patient came in wound was covered with the slough. Most likely stage III lesion. underlying fascia is intact. (3) HTN (hypertension) Is this a current diagnosis for this admission?: Yes Plan: 11/13/2018 patient blood pressure on admission is 154/113 with heart rate of 110. P do not have any home medications available I started him on lisinopril 20 p.o. twice daily and hydrochlorothiazide 25 mg p.o. daily. Hydralazine IV 10 mg every 4 as needed were requested for systolic blood pressure of more than 150 and diastolic blood pressure more than 100. Salt diet was advised diet exercise weight loss recommended. 11/14/2018 admission blood pressure is 154/113, today it is 142/84. Well controlled. Patient is on Lasix 20 mg p.o. twice daily, lisinopril 20 mg p.o. twice daily and hydrochlorothiazide 12.5 mg p.o. daily plan is to continue the present management. 11/17/2018 patient blood pressure slightly elevated today 168/100 he is on Lasix 20 mg p.o. daily lisinopril 20 mg p.o. twice daily hydrochlorothiazide 12.5 mg p.o. daily plan is to continue the present management. (4) Morbid obesity Is this a current diagnosis for this admission?: Yes Plan: 11/13/2018 patient BMI is more than 90. Diet exercise weight loss lifestyle modifications were discussed with the patient. Dietary consult was requested. Patient is going for bariatric surgery in [place] at the end of this month. 11/14/2018 patient BMI is more than 90. Again diet exercise weight loss lifestyle modifications are recommended. Dietary consult was also done. 11/17/2018 patient's BMI is more than 90 diet exercise weight loss and lifestyle modifications are again stressed. (5) Obstructive sleep apnea Is this a current diagnosis for this admission?: Yes Plan: 11/14/2018 patient has history of obstructive sleep apnea uses CPAP at night. Plan is to resume the CPAP during the hospital stay. 11/17/2018 patient has obstructive sleep apnea uses CPAP at home we plan to continue the present management while he was in the hospital. - Time Time Spent with patient: 15-24 minutes Medications reviewed and adjusted accordingly: Yes Anticipated discharge: Home
[2018-11-17] MEDS: ZOLPIDEM TARTRATE 5 MG TABLET PO SCH (23:12)
[2018-11-18] MEDS: PIPERACILLIN SODIUM/TAZOBACTAM 3.375 GM in NORMAL SALINE 100 ML IV SCH ×3 (03:39→15:00)
[2018-11-18] MEDS: FUROSEMIDE 20 MG TABLET PO SCH (06:00)
[2018-11-18 06:19] LABS: ABSOLUTE EOSINOPHILS # (AUTO) 0.3 10^3/uL (0.0-0.6); ABSOLUTE MONOCYTES (AUTO) 0.7 10^3/uL (0.1-1.4); ABSOLUTE NEUT (AUTO) 6.8 10^3/uL (1.7-8.2); BASOPHILS % (AUTO) 0.3 % (0-2); EOSINOPHILS % (AUTO) 2.9 % (0-6); HEMATOCRIT 28.1 % (37.9-51.0); HEMOGLOBIN 9.1 g/dL (13.5-17.0); LYMPHOCYTES % (AUTO) 11.3 % (13-45); MEAN CORPUSCULAR HEMOGLOBIN 28.1 pg (27.0-33.4); MEAN CORPUSCULAR HGB CONC 32.6 g/dL (32.0-36.0); MEAN CORPUSCULAR VOLUME 86 fl (80-97); MONOCYTES % (AUTO) 7.7 % (3-13); PLATELET COUNT 197 10^3/uL (150-450); RED BLOOD COUNT 3.26 10^6/uL (4.35-5.55); RED CELL DISTRIBUTION WIDTH 13.9 % (11.5-14.0); SEGMENTED NEUTROPHILS % (AUTO) 77.8 % (42-78); TOTAL CELLS COUNTED % (AUTO) 100 %; WHITE BLOOD COUNT 8.7 10^3/uL (4.0-10.5)
[2018-11-18 06:46] LABS: ALANINE AMINOTRANSFERASE 27 U/L (21-72); ALBUMIN 3.1 g/dL (3.5-5.0); ALKALINE PHOSPHATASE 66 U/L (38-126); ANION GAP 7 (5-19); ASPARTATE AMINO TRANSFERASE 23 U/L (17-59); BILIRUBIN,DIRECT 0.3 mg/dL (0.0-0.4); BILIRUBIN,TOTAL 0.4 mg/dL (0.2-1.3); BLOOD UREA NITROGEN 16 mg/dL (7-20); CALCIUM 8.5 mg/dL (8.4-10.2); CARBON DIOXIDE 34 mmol/L (22-30); CHLORIDE 99 mmol/L (98-107); GLUCOSE 99 mg/dL (75-110); POTASSIUM 3.6 mmol/L (3.6-5.0); SODIUM 140.4 mmol/L (137-145); TOTAL PROTEIN 7.1 g/dL (6.3-8.2)
[2018-11-18] MEDS: DOCUSATE SODIUM 100 MG CAPSULE PO SCH (09:00)
[2018-11-18] MEDS: LINEZOLID 600 MG/300 ML RTUPB IV SCH (09:04)
[2018-11-18] MEDS: ENOXAPARIN SODIUM INJ 40 MG/0.4 ML DISP.SYRIN SUBCUT SCH (09:04)
[2018-11-18] MEDS: CHOLECALCIFEROL (D3) 1,000 UNIT TABLET PO SCH (09:04)
[2018-11-18] MEDS: HYDROCHLOROTHIAZIDE 25 MG TABLET PO SCH (09:04)
[2018-11-18] MEDS: LISINOPRIL 10 MG TABLET PO SCH (09:04)
[2018-11-18] MEDS: FAMOTIDINE 20 MG TABLET PO SCH (09:04)
[2018-11-18] MEDS: FOLIC ACID 1 MG TABLET PO SCH (09:04)
--- NOTE | 2018-11-18 15:38 | PDOC DISCHARGE SUMMARY ---
General - Admit/Disc Date/PCP Admission Date/Primary Care Provider: 11/13/18 16:44 Discharge Date: 11/18/18 - Discharge Diagnosis (1) Cellulitis Is this a current diagnosis for this admission?: Yes Summary: 11/13/2018 patient has cellulitis around the left ankle. X-rays are negative for osteomyelitis. Ultrasound does not show any DVTs. Plan is to put him in telemetry blood cultures wound cultures urine culture and sputum cultures were requested. Sputum culture because patient is complaining of coughing up yellowish green sputum. He was started on Zosyn and vancomycin. We are going to adjust the doses as per the pharmacy recommendations. Repeat lactic acid is going to be requested. Initial lactic acid is still pending. 11/14/2018-patient came in with a cellulitis of the left lower leg and chronic ulcerations of the both lower legs he was started on Zosyn and vancomycin as per the ID recommendations vancomycin was changed to Zyvox. Patient is afebrile. Blood cultures blood cultures are pending. Patient is also complaining of coughing up greenish sputum at the time of admission sputum culture was requested which is also pending. Surgical team recommended a Unna boot. 11/17/2018 patient getting IV antibiotic therapy for left ankle cellulitis. Cultures are positive for enterococcus Enterobacter and Staphylococcus aureus. Waiting for the sensitivity report. Patient is presently on Zosyn and vancomycin. Surgical consult was requested the recommendation is a Unna boot. 11/18/2018-patient was admitted with left ankle cellulitis. The cultures came ba ck positive for enterococcus, Enterobacter Staphylococcus aureus patient is going to be discharged on Bactrim DS 1 tablet p.o. twice daily. Patient was strongly advised to follow-up with primary care physician in 3-5 days. Patient agreed to go home today. Actually patient is requesting to be discharged today. (2) Decubitus ulcer, ankle Is this a current diagnosis for this admission?: Yes Summary: 11/13/2018 patient has chronic venous stasis with ulceration about the both ankles. Foul-smelling drainage from the both ankles. Wound cultures were requested. Started on Zosyn and vancomycin. Surgical consult was requested. Dietary consult was requested for wound healing. 2018 patient has history of chronic venous stasis with ulceration Of the both ankles. Wound culture was done patient is presently on Zosyn and Zyvox. Dietary consult was requested for wound healing and surgical team recommended urine output. 11/17/2018-patient has ulceration over the both ankles. When this patient came in wound was covered with the slough. Most likely stage III lesion. underlying fascia is intact. 11/18/2018-patient has chronic ulcerations over the both ankles secondary to venous stasis. When he came in wound was covered with slough. My impression is as most likely stage III decubitus ulcer. This patient was seen and evaluated by the surgical team recommended unaboot. (3) HTN (hypertension) Is this a current diagnosis for this admission?: Yes Summary: 11/13/2018 patient blood pressure on admission is 154/113 with heart rate of 110. P do not have any home medications available I started him on lisinopril 20 p.o. twice daily and hydrochlorothiazide 25 mg p.o. daily. Hydralazine IV 10 mg every 4 as needed were requested for systolic blood pressure of more than 150 and diastolic blood pressure more than 100. Salt diet was advised diet exercise weight loss recommended. 11/14/2018 admission blood pressure is 154/113, today it is 142/84. Well controlled. Patient is on Lasix 20 mg p.o. twice daily, lisinopril 20 mg p.o. twice daily and hydrochlorothiazide 12.5 mg p.o. daily plan is to continue the present management. 11/17/2018 patient blood pressure slightly elevated today 168/100 he is on Lasix 20 mg p.o. daily lisinopril 20 mg p.o. twice daily hydrochlorothiazide 12.5 mg p.o. daily plan is to continue the present management. 11/18/2018-latest blood pressure is 160/95 still elevated he is on Lasix 20 mg twice a day, lisinopril 20 mg twice a day and hydrochlorothiazide 12.5 mg p.o. daily patient was advised to be compliant with medication and diet exercise weight loss was advised low-salt diet was advised. (4) Morbid obesity Is this a current diagnosis for this admission?: Yes Summary: 11/13/2018 patient BMI is more than 90. Diet exercise weight loss lifestyle modifications were discussed with the patient. Dietary consult was requested. Patient is going for bariatric surgery in [place] at the end of this month. 11/14/2018 patient BMI is more than 90. Again diet exercise weight loss lifestyle modifications are recommended. Dietary consult was also done. 11/17/2018 patient's BMI is more than 90 diet exercise weight loss and lifestyle modifications are again stressed. 11/18/2018-patient's BMI is more than 90. Again diet exercise weight loss and lifestyle modifications advised. Patient is going for gastric bypass surgery end of this month. (5) Obstructive sleep apnea Is this a current diagnosis for this admission?: Yes Summary: 11/14/2018 patient has history of obstructive sleep apnea uses CPAP at night. Plan is to resume the CPAP during the hospital stay. 11/17/2018 patient has obstructive sleep apnea uses CPAP at home we plan to continue the present management while he was in the hospital. 11/16/2018-patient has history of obstructive sleep apnea on CPAP at home. We will continue with the CPAP here. - Additional Information Resuscitation Status: Full Code Discharge Diet: Cardiac Discharge Activity: Activity As Tolerated Prescriptions: Furosemide [Lasix 20 mg Tablet] 20 mg PO BID@0600,1400 #60 tablet Hydrochlorothiazide [Hydrodiuril 25 mg Tablet] 25 mg PO DAILY #30 tablet Lisinopril [Prinivil 10 mg Tablet] 20 mg PO Q12 #60 tablet Oxycodone HCl/Acetaminophen [Percocet 5-325 mg Tablet] 1 tab PO Q4HP PRN #15 tablet PRN Reason: Sulfamethoxazole/Trimethoprim [Bactrim Ds Tablet] 1 each PO BID #14 tablet Home Medications: Ergocalciferol (Vitamin D2) [Vitamin D2] 2,000 unit PO DAILY 11/13/18 Folic Acid [Folvite 1 mg Tablet] 1 mg PO DAILY 11/13/18 Furosemide [Lasix 20 mg Tablet] 20 mg PO BID@0600,1400 #60 tablet 11/18/18 Hydrochlorothiazide [Hydrodiuril 25 mg Tablet] 25 mg PO DAILY #30 tablet 9 Lisinopril [Prinivil 10 mg Tablet] 20 mg PO Q12 #60 tablet 11/18/18 Oxycodone HCl/Acetaminophen [Percocet 5-325 mg Tablet] 1 tab PO Q4HP PRN #15 tablet 11/18/18 Sulfamethoxazole/Trimethoprim [Bactrim Ds Tablet] 1 each PO BID #14 tablet 11/18/18 History of Present Illness History of Present Illness: OLGA BAINS is a 32 year old male with history of morbid obesity BMI more than 90 and hypertension, chronic venous stasis of the lower extremities chronic ulcers of the lower extremities above the ankles came to the emergency room with complaints of bilateral lower leg swelling and especially swelling around the left ankle associated with increased redness around the left ankle and pain. He is also given the history of fever and chills since yesterday. Is also given the history of cough with thick yellowish greenish sputum for the last 3-4 days. denies any headaches, nausea vomiting. Denies any falls and trips. Denies any recent history of trauma. Patient said he is scheduled to go for bariatric surgery at end of this month. The workup was done and he supposed to see the stitchdown toe former next week for final clearance. Physical Exam Vital Signs: Temp Pulse Resp BP Pulse Ox 98.4 F 95 18 149/109 H 93 11/18/18 12:08 11/18/18 14:00 11/18/18 12:08 11/18/18 12:08 11/18/18 12:13 Intake & Output 11/17/18 11/18/18 11/19/18 06:59 06:59 06:59 Intake Total 3880 3604 400 Output Total 3975 3850 Balance -95 -246 400 Weight 300.1 kg 301.3 kg General appearance: PRESENT: other - Morbidly obese male Head exam: PRESENT: atraumatic Eye exam: PRESENT: PERRLA Mouth exam: PRESENT: dry mucosa Respiratory exam: PRESENT: clear to auscultation vesna. ABSENT: rales, rhonchi, wheezes Cardiovascular exam: PRESENT: tachycardia GI/Abdominal exam: PRESENT: normal bowel sounds, soft. ABSENT: distended, guarding, mass, organolmegaly, rebound, tenderness Extremities exam: PRESENT: other - Venous stasis of the lower extremities. Chronic ulceration about the both ankles. Neurological exam: PRESENT: alert, awake, oriented to person, oriented to place, oriented to time, oriented to situation, CN II-XII grossly intact. ABSENT: motor sensory deficit Psychiatric exam: PRESENT: appropriate affect, normal mood. ABSENT: homicidal ideation, suicidal ideation Results Laboratory Results: 11/18/18 06:00 11/18/18 06:00 11/18/18 11/18/18 06:00 06:00 WBC 8.7 RBC 3.26 L Hgb 9.1 L Hct 28.1 L MCV 86 MCH 28.1 MCHC 32.6 RDW 13.9 Plt Count 197 Seg Neutrophils % 77.8 Lymphocytes % 11.3 L Monocytes % 7.7 Eosinophils % 2.9 Basophils % 0.3 Absolute Neutrophils 6.8 Absolute Lymphocytes 1.0 Absolute Monocytes 0.7 Absolute Eosinophils 0.3 Absolute Basophils 0.0 Sodium 140.4 Potassium 3.6 Chloride 99 Carbon Dioxide 34 H Anion Gap 7 BUN 16 Creatinine 1.20 Est GFR ( Amer) > 60 Est GFR (Non-Af Amer) > 60 Glucose 99 Calcium 8.5 Magnesium 1.9 Total Bilirubin 0.4 AST 23 ALT 27 Alkaline Phosphatase 66 Total Protein 7.1 Albumin 3.1 L 11/14/18 06:10 Foot - Sore Gram Stain - Final 11/14/18 06:10 Foot - Sore Wound Culture - Final Enterobacter Cloacae Enterococcus Faecalis(Group D) Staphylococcus Aureus 11/13/18 06:40 Sputum Gram Stain - Final 11/13/18 06:40 Sputum Sputum Culture - Final NORMAL LUDWIN 11/14/18 04:24 NT-Pro-B Natriuret Pep 138 H Impressions: Venous Doppler Study 11/13/18 14:37 IMPRESSION: Limited and incomplete examination due to patient habitus and refusal of further examination. Within this limitation, no evidence of deep venous thrombosis in the left common femoral vein, proximal left superficial femoral vein, popliteal vein, or saphenous veins. The mid to distal superficial femoral vein and calf veins are not evaluated. Ankle X-Ray 11/13/18 14:47 IMPRESSION: No fracture or dislocation of the left ankle. Diffuse soft tissue swelling about the medial left ankle with a bandaged wound superior to the ankle. Chest X-Ray 11/15/18 00:24 IMPRESSION: New right IJ line with tip near cavoatrial junction. No pneumothorax. Qualifiers - * PATIENT BEING DISCHARGED WITH ANY OF THE FOLLOWING DIAGNOSIS: No VTE patient discharged on overlapping Therapy?: Yes
[2018-11-18 17:30] VITALS: BP 153/79
== END 2018-11-18 18:50 | disposition home or self-care (01) | DRG 602 ==
LOC: ER 11:32 → EH 16:44 → 5 20:04
PROVIDERS: ADMIT Internal Medicine; ATTEND Internal Medicine
PROC: 02HV33Z Insertion of Infusion Device into Superior Vena Cava, Percutaneous Approach (ICD-10-PCS; principal; 2018-11-15)
PROC: B548ZZA Ultrasonography of Superior Vena Cava, Guidance (ICD-10-PCS; 2018-11-15)
DX: L03.116 Cellulitis of left lower limb (principal); L89.523 Pressure ulcer of left ankle, stage 3; L89.513 Pressure ulcer of right ankle, stage 3; Z68.45 Body mass index [BMI] 70 or greater, adult; I10 Essential (primary) hypertension; I87.8 Other specified disorders of veins; M06.9 Rheumatoid arthritis, unspecified; G47.33 Obstructive sleep apnea (adult) (pediatric); E66.01 Morbid (severe) obesity due to excess calories; B95.2 Enterococcus as the cause of diseases classified elsewhere; B95.61 Methicillin susceptible Staphylococcus aureus infection as the cause of diseases classified elsewhere
CPT/HCPCS: 36415; 36600; 71045; 80053; 80061; 80069; 82803; 83036; 83605; 83735; 83880; 84443; 85025; 87040; 87070; 87077; 87086; 87186; 87205; 93971; 94660; 96374; 96375; 99285; C1751; J0360; J1170; J1642; J1650; J2020; J2405; J2543; J3370; J7030; J7060